=== PATIENT | female | born 1995 | race American Indian/Alaskan Native ===

== ENCOUNTER 2017-10-16 12:25 | Emergency (ER) | payer SELFPAY ==
[2017-10-16 13:21] LABS: SQUAMOUS EPITHIAL 8 /hpf (0-5); URINE BILIRUBIN NEGATIVE (NEGATIVE); URINE BLOOD NEGATIVE (NEGATIVE); URINE CLARITY Hazy (Clear); URINE COLOR Yellow (YELLOW); URINE GLUCOSE (UA) NORMAL (Normal); URINE LEUKOCYTE ESTERASE NEG Leu/uL (Negative); URINE PROTEIN NEGATIVE (NEGATIVE); URINE UROBILINOGEN NORMAL mg/dL (0.2-1.0)
[2017-10-16 14:57] LABS: BASO % 0.5 % (0.0-2.0); EOS # 0.2 K/uL (0.0-0.7); EOS % 3.5 % (0.0-4.0); HEMOGLOBIN 11.3 g/dL (11.0-16.0); LYMPH # 1.5 K/uL (1.0-4.3); LYMPH % 23.4 % (20.0-40.0); MEAN CELL VOLUME 84.1 fL (81.0-99.0); MEAN CORPUSCULAR HEMOGLOBIN 28.1 pg (27.0-31.0); MEAN CORPUSCULAR HGB CONC 33.4 g/dL (33.0-37.0); MEAN PLATELET VOLUME 7.9 fL (7.2-11.7); MONO # 0.4 K/uL (0.0-0.8); MONO % 6.8 % (0.0-10.0); NEUT # 4.1 K/uL (1.8-7.0); NEUT % 65.8 % (50.0-75.0); NRBC % 0.1 % (0.0-2.0); PLATELET COUNT 239 K/uL (130-400); RBC 4.03 Mil/uL (3.80-5.20); RED CELL DISTRIBUTION WIDTH 13.2 % (11.5-14.5); WHITE BLOOD COUNT 6.3 K/uL (4.8-10.8)
--- NOTE | 2017-10-16 15:02 | US ---
PROCEDURE: Second trimester ultrasound HISTORY: dating and transvaginal for cervical length and COMPARISON: None available. TECHNIQUE: Standard protocol for this study/examination. FINDINGS: Cephalic presentation. Posterior Placenta. No evidence of abruption or previa Gestational age derived from LMP 24 weeks 5 days. JARAD 01/31/2018. Gestational age derived from the following biometric parameters 24 weeks 3 days. JARAD 02/02/2018 Biparietal diameter 5.99 cm Head circumference 22.16 cm Abdominal circumference 19.51 cm Femur length 4.51 cm Estimated weight 699.7 g Calculated cardiac rate 137 beats per min. Closed cervix measuring 2.7 cm IMPRESSION: Live intrauterine gestation cephalic presentation. Gestational concordance documented.
[2017-10-16 15:06] LABS: PROTHROMBIN TIME 11.1 SECONDS (9.7-12.2)
--- NOTE | 2017-10-16 16:22 | OBHP ---
Datetime: 10/16/2017 15:45 IP Adm Impression: , intrauterine IP Admit Plan: Observation/Evaluation; Discharge home Admit Comment, IP Provider: 22 y/o at 24.5 wks by LMP and todays US presented to [facility] with c/ o intermittent vaginal bleeding for 1 wks and cramping. No c/o LOF. +FM. Pt hasn't had any PNC.Crampi ng has improved today. Bleeding was minimal yesterday with old blood. No bleeding today. No other com plaints today. PMH: Denies PSH: D_C for POBH: x 1 , No complications. Exam: Vaginal exam defered. ABD; Soft, Non tender. US: Live IUP at 24.5 wks, CL 2.7 cm, No placenta previa, + FH TOCO: No ctx EFM: 140 Labs: H/H 11.3/33 [id number]-[id number] Blood type O positive A/P: 22 y/o at 24.5 wks with s/p vaginal bleeding, cramping improved, Pt feels better Discussed that she is a hihg risk pt and needs close f/u. Made [facility]redis with [facility] for at 1:30 pm. ( called M office send for US - Their recommendation is to have the pt f/u at the clinic and refer the pt from the clinic) Pt was advised bed rest , nothing per vagina , increased hydration. Pt was adivied to f/u with any more episode of bleeding and cramping preferably at the [facility] since she is pre-term. Again stressed the importance of rest and f/u tomorrow regardless of the insurance status. Pt was instructed to bring a mothod of identification to the [facility]is. Pt was also given copies of records includ ing the US to bring to the [facility]. Pt verbalized to understand the instructions. Pelvic Type - PN: Not Done Extremities - PN: Normal Abdomen - PN: Normal Back - PN: Not Done Breast - PN: Not Done Lungs - PN: Not Done Heart - PN: Not Done Thyroid - PN: Not Done Neurologic - PN: Not Done HEENT - PN: Normal General - PN: Normal FHR - Baseline A Provider: [id number] Contraction Comments Provider: None Comments, ACOG Physical Exam: ABD; Soft, Nt Gestation - Est Wks by US: 24.5 EGA AdmitDate IP: 24.5 Vital Signs Provider: Reviewed; Within Normal Limits IP Chief Complaint: Vaginal bleeding; Other Genitourinary Exam: Normal DTRs - PN: Normal
[2017-10-16 20:09] VITALS: BP 125/74; PULSE 85; RESP 20; TEMP 98.1
== END 2017-10-16 16:00 | disposition home or self-care (01) ==
LOC: C.EROB 12:25
DX: O46.92 Antepartum hemorrhage, unspecified, second trimester (principal); Z3A.24 24 weeks gestation of pregnancy